=== PATIENT | female | born 1935 | race Two or more races ===

== ENCOUNTER 2021-03-06 08:29 | Outpatient (CLI) | payer OTHER | END 2021-03-06 08:35 | disposition home or self-care (01) | LOC: RX STUDY 08:29 | PROVIDERS: ATTEND Internal Medicine Gastroenterology | DX: R13.19 Other dysphagia (principal) ==

== ENCOUNTER 2021-10-02 09:09 | Outpatient (CLI) | payer OTHER | END 2021-10-02 09:20 | disposition home or self-care (01) | LOC: RX STUDY 09:09 | DX: R13.10 Dysphagia, unspecified (principal) ==